=== PATIENT | male | born 2000 | race Caucasian/White ===

== ENCOUNTER 2019-06-09 11:18 | Emergency (ER) | payer SELFPAY ==
[~2019-06-09] VITALS: Ht 182.9 cm; Wt 84.8 kg
[2019-06-09] MEDS ORDERED: cefTRIAXone W LIDOCAINE 1 GM IM IM ONE (11:45)
[2019-06-09] MEDS ORDERED: TETANUS-DIPTH-ACEL PERTUSSIS 0.5ML SYRG IM ONE (11:45)
[2019-06-09] MEDS ORDERED: ONDANSETRON HCL 4 MG/2 ML VIAL IV ONE (12:00)
[2019-06-09] MEDS ORDERED: MORPHINE SULFATE 4 MG/ML SYR/VIAL IV ONE (12:00)
[2019-06-09] MEDS ORDERED: HYDROmorphone HCL 2 MG/ML VL IV ONE (13:15)
[2019-06-09 13:50] VITALS: BP 129/71
== END 2019-06-09 14:17 | disposition home or self-care (01) ==
LOC: ER 11:27
DX: S91.332A Puncture wound without foreign body, left foot, initial encounter (principal); W34.00XA Accidental discharge from unspecified firearms or gun, initial encounter; Y93.89 Activity, other specified; Y99.8 Other external cause status; Y92.89 Other specified places as the place of occurrence of the external cause
CPT/HCPCS: 73630; 90471; 90715; 96372; 96374; 96375; 99283; J0696; J1170; J2270; J2405

== ENCOUNTER 2020-06-15 18:49 | Emergency (ER) | payer SELFPAY ==
[~2020-06-15] VITALS: Ht 185.4 cm; Wt 81.6 kg
[2020-06-15 19:00] VITALS: BP 147/102
== END 2020-06-16 02:44 | disposition home or self-care (01) ==
LOC: ER 18:49
DX: F10.929 Alcohol use, unspecified with intoxication, unspecified (principal); V49.9XXA Car occupant (driver) (passenger) injured in unspecified traffic accident, initial encounter; Y93.89 Activity, other specified; Y92.89 Other specified places as the place of occurrence of the external cause; Y99.8 Other external cause status